=== PATIENT | male | born 1975 | race Caucasian/White ===

== ENCOUNTER → 2018-11-20 | Outpatient (CLI) | payer OTHER ==
[2018-11-20 16:02] LABS: HCT 47.1 % (39.0-53.0); HGB 16.8 gm/dL (13.0-17.5); MCH 32.6 pg (25.0-35.0); MCHC 35.6 g/dL (31.0-37.0); MCV 91.6 fL (80.0-100.0); Mean Platelet Volume 6.1; Platelet Count 247 k/uL (150-450); RBC 5.14 m/uL (4.30-5.90); RDW 12.5 % (11.5-15.5); WBC 9.3 k/uL (3.8-10.6)
--- NOTE | 2018-11-20 16:10 | XR ---
EXAMINATION TYPE: XR chest 2V DATE OF EXAM: 11/20/2018 COMPARISON: Prior chest x-ray 04/04/2016 HISTORY: Cough TECHNIQUE: Frontal and lateral views of the chest are obtained. FINDINGS: There is no focal air space opacity, pleural effusion, or pneumothorax seen. The cardiac silhouette size is within normal limits. The osseous structures are intact. IMPRESSION: No acute cardiopulmonary process.
[2018-11-20 22:37] LABS: Albumin 4.6 g/dL (3.80-4.90); Albumin/Globulin Ratio 2.42 (1.60-3.17); Anion Gap 5.1 mmol/L (4.00-12.00); Calcium 9.2 mg/dL (8.7-10.3); Carbon Dioxide 25.9 mmol/L (21.6-31.8); Globulin 1.9 g/dL (1.6-3.3); Potassium 3.9 mmol/L (3.5-5.5); Total Bilirubin 0.5 mg/dL (0.3-1.2); Total Protein 6.5 g/dL (6.2-8.2)
[2018-11-20 22:45] LABS: T4, Free (Free Thyroxine) 1.1 ng/dL (0.80-1.80)
[2018-11-21 00:14] LABS: Hemoglobin A1C 5.5 % (4.0-6.0)
== END | disposition home or self-care (01) ==
LOC: LABWHC1 15:18
PROVIDERS: ATTEND Internal Medicine
DX: Z00.00 Encounter for general adult medical examination without abnormal findings (principal); E78.2 Mixed hyperlipidemia; R73.9 Hyperglycemia, unspecified; J44.9 Chronic obstructive pulmonary disease, unspecified; R53.82 Chronic fatigue, unspecified
CPT/HCPCS: 36415; 71046; 80053; 80061; 83036; 84439; 84443; 85027

== ENCOUNTER → 2019-02-26 | Outpatient (CLI) | payer OTHER ==
[2019-02-26 16:28] LABS: LDL Cholesterol,Calculated 119.2 mg/dL (0.0-131.0); VLDL Calculation 15.8 mg/dL (5.00-40.00)
== END | disposition home or self-care (01) ==
LOC: LABWHC1 09:53
PROVIDERS: ATTEND Internal Medicine
DX: E78.2 Mixed hyperlipidemia (principal)
CPT/HCPCS: 36415; 80061; 82550; 84450; 84460

== ENCOUNTER 2023-12-22 09:54 | Emergency (ER) | payer OTHER ==
--- NOTE | 2023-12-22 10:25 | ED ---
ENT HPI - General Chief complaint: ENT Stated complaint: Pain in ears Time Seen by Provider: 12/22/23 10:10 Source: patient, RN notes reviewed Mode of arrival: ambulatory Limitations: no limitations - History of Present Illness Initial comments: 47-year-old male with no significant past medical history presents to emergency department chief complaint of ringing in bilateral ears. Patient states he woke up this morning with a ringing sensation in both ears. Patient denies any obvious trauma to either ear nor head trauma. Denies headaches, dizziness, feeling off balance, lightheadedness, loss of vision, blurry vision/double vision, nausea, vomiting. Patient states that he had upper respiratory symptoms about 2 weeks ago including cough, runny nose, nasal congestion. Patient has a history of ringing in his ears where he visited his primary care provider in the past after successful irrigation of both ears resulted in the ringing to stop. Patient denies use of daily aspirin, NSAIDs, loop diuretics or recent antibiotic use. - Related Data Previous Rx's Medication Instructions Recorded Naproxen Sodium [Anaprox Ds] 550 mg PO Q12HR #20 tab 05/01/14 traMADol HCl [Ultram] 50 mg PO Q4H PRN #20 tab 05/01/14 Cephalexin [Keflex] 500 mg PO Q6HR #28 cap 05/19/15 Carbamide Peroxide [Debrox Otic] 5 drops LEFT EAR BID #15 ml 12/22/23 Allergies Allergy/AdvReac Type Severity Reaction Status Date / Time No Known Allergies Allergy Verified 05/19/15 11:57 Review of Systems ROS Statement: Those systems with pertinent positive or pertinent negative responses have been documented in the HPI. ROS Other: All systems not noted in ROS Statement are negative. Past Medical History Past Medical History: No Reported History History of Any Multi-Drug Resistant Organisms: None Reported Past Surgical History: No Surgical Hx Reported Past Psychological History: No Psychological Hx Reported Past Alcohol Use History: Occasional Past Drug Use History: None Reported General Exam Limitations: no limitations General appearance: alert, in no apparent distress Head exam: Present: atraumatic, normocephalic, normal inspection Eye exam: Present: normal appearance, PERRL, EOMI. Absent: scleral icterus, conjunctival injection, periorbital swelling Expanded TM/Canal exam: Erythema: Right TM, Left TM, Bulging: Right TM, Cerumen Impaction: Left TM (bilateral impaction, left complete impaction) Neck exam: Present: normal inspection. Absent: tenderness, meningismus, lymphadenopathy Respiratory exam: Present: normal lung sounds bilaterally. Absent: respiratory distress, wheezes, rales, rhonchi, stridor Cardiovascular Exam: Present: regular rate, normal rhythm, normal heart sounds. Absent: systolic murmur, diastolic murmur, rubs, gallop, clicks GI/Abdominal exam: Present: soft, normal bowel sounds. Absent: distended, tenderness, guarding, rebound, rigid Extremities exam: Present: normal inspection, full ROM, normal capillary refill. Absent: tenderness, pedal edema, joint swelling, calf tenderness Back exam: Present: normal inspection Neurological exam: Present: alert, oriented X3, CN II-XII intact, other (NIH stroke scale negative, no evidence of cerebellar ataxia) Psychiatric exam: Present: normal affect, normal mood Skin exam: Present: warm, dry, intact, normal color. Absent: rash Course Vital Signs 12/22/23 10:02 Temperature 97.7 F Pulse Rate 77 Respiratory 18 Rate Blood Pressure 155/97 O2 Sat by Pulse 100 Oximetry Medical Decision Making - Medical Decision Making Was pt. sent in by a medical professional or institution (, PA, BLOCK CUTTER, urgent care, hospital, or long-term...) When possible be specific @ -No Did you speak to anyone other than the patient for history (EMS, parent, family, police, friend...)? What history was obtained from this source @ -No Did you review nursing and triage notes (agree or disagree)? Why? @ -I reviewed and agree with nursing and triage notes Were old charts reviewed (outside hosp., previous admission, EMS record, old EKG, old radiological studies, urgent care reports/EKG's, long-term records)? Report findings @ -No old charts were reviewed Differential Diagnosis (chest pain, altered mental status, abdominal pain women, abdominal pain men, vaginal bleeding, weakness, fever, dyspnea, syncope, headache, dizziness, GI bleed, back pain, seizure, CVA, palpatations, mental health, musculoskeletal)? @ -Differential: Cerumen impaction, otitis media, otitis externa EKG interpreted by me (3pts min.). @ -None X-rays interpreted by me (1pt min.). @ -None done CT interpreted by me (1pt min.). @ -None done U/S interpreted by me (1pt. min.). @ -None done What testing was considered but not performed or refused? (CT, X-rays, U/S, labs)? Why? @ -None What meds were considered but not given or refused? Why? @ -None Did you discuss the management of the patient with other professionals (professionals i.e. DrChidi, PA, BLOCK CUTTER, lab, RT, psych nurse, administrator social welfare, special needs child caregiver, teacher, production officer, case coordinator)? Give summary @ -No Was smoking cessation discussed for >3mins.? @ -No Was critical care preformed (if so, how long)? @ -No Were there social determinants of health that impacted care today? How? (Homelessness, low income, unemployed, alcoholism, drug addiction, transportation, low edu. Level, literacy, decrease access to med. care, [facility], rehab)? @ -No Was there de-escalation of care discussed even if they declined (Discuss DNR or withdrawal of care, Hospice)? DNR status @ -No What co-morbidities impacted this encounter? (DM, HTN, Smoking, COPD, CAD, Cancer, CVA, ARF, Chemo, Hep., AIDS, mental health diagnosis, sleep apnea, morbid obesity)? @ -None Was patient admitted / discharged? Hospital course, mention meds given and route, prescriptions, significant lab abnormalities, going to OR and other pertinent info. @ -discharged. 47-year-old male with chief complaint of bilateral tinnitus. bilateral irrigation of ears aided in disimpaction of right ear, left ear is still impacted. Patient states that his hearing and ringing in his right ear has gone away after irrigation. Patient feels comfortable with being discharged home with Debrox drops to aid in further disimpaction of left ear. Also given referral to ENT for further evaluation if symptoms persist over the next week. Undiagnosed new problem with uncertain prognosis? @ -No Drug Therapy requiring intensive monitoring for toxicity (Heparin, Nitro, Insulin, Cardizem)? @ -No Were any procedures done? @ -No Diagnosis/symptom? @ -Tinnitus, cerumen impaction Acute, or Chronic, or Acute on Chronic? @ -Acute Uncomplicated (without systemic symptoms) or Complicated (systemic symptoms)? @ -Uncomplicated Side effects of treatment? @ -No Exacerbation, Progression, or Severe Exacerbation? @ -No Poses a threat to life or bodily function? How? (Chest pain, USA, CT, pneumonia, PE, COPD, DKA, ARF, appy, cholecystitis, CVA, Diverticulitis, Homicidal, Suicidal, threat to staff... and all critical care pts) @ -No Disposition Clinical Impression: Impacted cerumen of both ears Narrative: Please return to the Emergency Department if symptoms worsen or any other concerns. Patient to continue with use of Debrox at home for further disimpaction. Also given referral to ENT if symptoms persist over the next 7 to 10 days. Disposition: HOME SELF-CARE Instructions (If sedation given, give patient instructions): Tinnitus (ED) Prescriptions: Carbamide Peroxide [Debrox Otic] 5 drops LEFT EAR BID #15 ml Is patient prescribed a controlled substance at d/c from ED?: No Referrals: None,Stated [Primary Care Provider] - 1-2 days Garrett Dey MD [STAFF PHYSICIAN] - 1-2 days Time of Disposition: 12:01
[2023-12-22 11:13] VITALS: PULSE 77
[2023-12-22 12:35] VITALS: BP 150/88; RESP 22; TEMP 97.5
== END 2023-12-22 12:22 | disposition home or self-care (01) ==
LOC: EC 09:54 → EEVIPCON 09:54 → EC 12:22
DX: H61.23 Impacted cerumen, bilateral (principal); H93.13 Tinnitus, bilateral
CPT/HCPCS: 99283